=== PATIENT | male | born 1970 | race African-American/Black ===

== ENCOUNTER 2024-07-19 14:53 | Emergency (ER) | payer OTHER ==
[~2024-07-19] VITALS: Ht 175.3 cm; Wt 77.1 kg
[2024-07-19] MEDS ORDERED: LORAZEPAM 2 MG/1 ML VIAL ONE (15:08)
[2024-07-19] MEDS: LORAZEPAM 2 MG/1 ML VIAL IV ONE (15:13)
[2024-07-19] MEDS: IV NORMAL SALINE 1000 ML BAG IV ONE (15:13)
[2024-07-19] MEDS ORDERED: NITROGLYCERIN OINT 1 GM PACKET TP ONE (15:15)
[2024-07-19] MEDS ORDERED: HEPARIN SODIUM,PORCINE 5,000 UNITS/ML VIAL ONE (15:20)
[2024-07-19] MEDS: HEPARIN SODIUM,PORCINE 5,000 UNITS/ML VIAL IV ONE (15:24)
[2024-07-19 15:25] VITALS: BP 172/126
[2024-07-19 15:25] LABS: BASOPHILS % (AUTO) 0.5 % (0.0-2.0); EOSINOPHILS % (AUTO) 0.5 % (0.0-7.0); HEMATOCRIT 42.2 % (36.7-47.1); HEMOGLOBIN 14.3 g/dL (12.5-16.3); LYMPHOCYTES # (AUTO) 2.1 K/uL (0.8-4.8); MEAN CORPUSCULAR HEMOGLOBIN 30.1 uug (23.8-33.4); MEAN CORPUSCULAR HGB CONC 34 g/dL (32.5-36.3); MONOCYTES # (AUTO) 0.9 K/uL (0.1-1.30); MONOCYTES % (AUTO) 13.1 % (0.0-11.0); NEUTROPHILS # (AUTO) 3.8 K/uL (1.8-8.9); NEUTROPHILS % (AUTO) 54.9 % (38.5-71.5); PLATELET COUNT (AUTO) 259 K/uL (152-348); RED BLOOD CELL COUNT(AUTO) 4.74 MIL/uL (4.06-5.63); RED CELL DISTRIBUTION WIDTH 15.5 % (12.1-16.2); WHITE BLOOD COUNT (AUTO) 6.9 K/uL (3.6-10.2)
[2024-07-19] MEDS ORDERED: ONDANSETRON 4 MG/2 ML VIAL ONE (15:25)
[2024-07-19] MEDS ORDERED: MORPHINE SULFATE 4 MG/1 ML DISP.SYRIN ONE (15:25)
[2024-07-19] MEDS: NITROGLYCERIN OINT 1 GM PACKET TP ONE (15:25)
[2024-07-19 15:27] LABS: DIFFERENTIAL COMMENT 1
[2024-07-19 15:33] LABS: CALCIUM 9.1 mg/dL (8.5-10.1); CARBON DIOXIDE 25 mmol/L (21-32); CHLORIDE 102 mmol/L (98-107); CREATININE 1.7 mg/dL (0.6-1.3); GLUCOSE 142 mg/dL (74-106); POTASSIUM 3.2 mmol/L (3.5-5.1); SODIUM SERUM 143 mmol/L (136-145); UREA NITROGEN, BLOOD 15 mg/dL (7-18)
[2024-07-19] MEDS: MORPHINE SULFATE 4 MG/1 ML DISP.SYRIN IV ONE (15:35)
[2024-07-19] MEDS: ONDANSETRON 4 MG/2 ML VIAL IV ONE (15:37)
[2024-07-19 15:45] VITALS: O2SAT 99
[2024-07-19 15:46] LABS: ALANINE AMINOTRANSFERASE 16 U/L (16-63); ALBUMIN 4.3 g/dL (3.4-5.0); ALKALINE PHOSPHATASE 83 U/L (50-136); ASPARTATE AMINOTRANSFERASE 14 U/L (15-37); BILIRUBIN,DIRECT 0.1 mg/dL (0.0-0.2); BILIRUBIN,TOTAL 0.5 mg/dL (0.2-1.0); ETHANOL < 3 MG/DL (0-10); NT-PRO BNP 58 pg/mL (0-125); TOTAL PROTEIN, SERUM 7.9 g/dL (6.4-8.2)
== END 2024-07-19 16:12 | disposition short-term general hospital (02) ==
LOC: ER 14:53
DX: I21.3 ST elevation (STEMI) myocardial infarction of unspecified site (principal); I24.9 Acute ischemic heart disease, unspecified; F17.210 Nicotine dependence, cigarettes, uncomplicated; I10 Essential (primary) hypertension
CPT/HCPCS: 80076; 80048; 83880; 85025; 84484; 36415; 71045; 93005; 99285; 96374; 96375; 80320; J1644; J2060; J2405; J2270; J7040; A4606; A4663; G0480